=== PATIENT | female | born 1960 | race Two or more races ===

== ENCOUNTER 2021-02-22 10:27 | Emergency (ER) | payer OTHER ==
[~2021-02-22] VITALS: Ht 165.1 cm; Wt 88.0 kg
[2021-02-22] MEDS ORDERED: PREMPRO 0.3 MG1 EACH PO (10:52)
== END 2021-02-22 17:25 ==
LOC: ER 10:27
DX: N73.9 Female pelvic inflammatory disease, unspecified (principal)